=== PATIENT | male | born 1945 | race Caucasian/White ===

== ENCOUNTER 2024-02-02 23:28 | Inpatient (IN) | payer MEDICARE, BC ==
[~2024-02-02] VITALS: Ht 172.7 cm; Wt 75.3 kg
[2024-02-03] MEDS ORDERED: SIMV-46 PO (01:41)
[2024-02-03] MEDS ORDERED: TRAZ-182 (01:41)
[2024-02-03] MEDS ORDERED: ARIP2TAB3 (01:41)
[2024-02-03] MEDS ORDERED: SERT100T (01:41)
[2024-02-03] MEDS ORDERED: VALS80TA31 PO (01:41)
[2024-02-03] MEDS ORDERED: MAGNESIUM HYDROXIDE 30 ML LIQUID UDC PO PRN (02:45)
[2024-02-03] MEDS ORDERED: ZOLPIDEM 5 MG TABLET PO PRN (02:45)
[2024-02-03] MEDS ORDERED: LORAZEPAM 1 MG TABLET PO PRN (02:45)
[2024-02-03] MEDS ORDERED: ACETAMINOPHEN 325 MG TABLET PO PRN (02:45)
[2024-02-03] MEDS ORDERED: MAG HYDROX/AL HYDROX/SIMETH 30 ML LIQUID UDC PO PRN (02:45)
[2024-02-03] MEDS: BLOOD SUGAR DIAGNOSTIC 1 EACH STRIP VI ONE (03:31)
[2024-02-03 03:43] VITALS: BP 139/90; TEMP 98.1; O2SAT 96
[2024-02-03 08:00] VITALS: BP 121/87; TEMP 98.3; O2SAT 96
[2024-02-03 08:04] LABS: CALCIUM 9.2 mg/dL (8.5-10.1); CREATININE 0.9 mg/dL (0.6-1.3); POTASSIUM 3.5 mmol/L (3.5-5.1)
[2024-02-03] MEDS: SERTRALINE HCL 100 MG TABLET PO SCH (08:57)
[2024-02-03] MEDS: ARIPIPRAZOLE 2 MG TABLET PO SCH (08:57)
[2024-02-03 16:15] VITALS: BP 132/81; TEMP 98; O2SAT 96
[2024-02-03] MEDS: VALSARTAN 80 MG TABLET PO SCH (16:48)
[2024-02-03 20:00] VITALS: BP 138/81; TEMP 98.1; O2SAT 95
[2024-02-03] MEDS: SIMVASTATIN 20 MG TABLET PO SCH (20:38)
[2024-02-03] MEDS: MELATONIN 3 MG TABLET PO SCH (20:38)
[2024-02-03] MEDS: TRAZODONE 50 MG TABLET PO SCH (20:39)
[2024-02-04 07:54] VITALS: BP 126/74; TEMP 98.6; O2SAT 97
[2024-02-04 16:07] VITALS: BP 134/86; TEMP 97.6; O2SAT 97
[2024-02-04 20:00] VITALS: BP 136/82; TEMP 98; O2SAT 95
[2024-02-05 08:00] VITALS: BP 134/77; TEMP 97.9; O2SAT 97
[2024-02-05] MEDS: PSYLLIUM SEED PACKET PO SCH (09:00)
[2024-02-05] MEDS ORDERED: CALCIUM POLYCARBOPHIL 625 MG TABLET PO SCH (09:00)
[2024-02-05 16:17] VITALS: BP 120/81; TEMP 98.2; O2SAT 98
[2024-02-05 20:00] VITALS: BP 144/75; TEMP 98.1; O2SAT 93
[2024-02-06 08:27] VITALS: BP 98/50; TEMP 98.1; O2SAT 98
[2024-02-06] MEDS: ARIPIPRAZOLE 2 MG TABLET PO ONE (10:22)
[2024-02-06 16:10] VITALS: BP 102/60; TEMP 98.1; O2SAT 98
[2024-02-06 20:00] VITALS: BP 123/85; TEMP 98; O2SAT 97
[2024-02-07 08:41] VITALS: BP 116/74; TEMP 97.9; O2SAT 100
[2024-02-07] MEDS: ARIPIPRAZOLE 5 MG TABLET PO SCH (08:52)
[2024-02-07] MEDS ORDERED: ARIPIPRAZOLE 2 MG TABLET PO SCH (09:00)
[2024-02-07 16:28] VITALS: BP 121/73; TEMP 98; O2SAT 99
[2024-02-07 20:09] VITALS: BP 118/70; TEMP 98.1; O2SAT 98
[2024-02-07] MEDS: VALSARTAN 80 MG TABLET PO SCH (20:43)
[2024-02-08 07:56] VITALS: BP 113/71; TEMP 98.3; O2SAT 98
[2024-02-08 16:09] VITALS: BP 111/76; TEMP 98.1; O2SAT 98
[2024-02-08 20:00] VITALS: BP 130/77; TEMP 98.1; O2SAT 95
[2024-02-09 07:30] VITALS: BP 107/67; TEMP 98; O2SAT 98
[2024-02-09 15:24] VITALS: BP 113/71; TEMP 98.2; O2SAT 94
[2024-02-09 20:00] VITALS: BP 129/77; TEMP 98.9; O2SAT 95
[2024-02-10 07:59] VITALS: BP 132/89; TEMP 98; O2SAT 100
[2024-02-10 08:37] VITALS: BP 133/89
== END 2024-02-10 12:34 | disposition home or self-care (01) | DRG 885 ==
LOC: ER 23:38 → GPS 02-03 01:00
PROVIDERS: ADMIT Psychiatry & Neurology Psychiatry; ATTEND Nurse Practitioner Acute Care
DX: F33.2 Major depressive disorder, recurrent severe without psychotic features (principal); R45.851 Suicidal ideations; E78.5 Hyperlipidemia, unspecified; F41.9 Anxiety disorder, unspecified; I10 Essential (primary) hypertension; M19.90 Unspecified osteoarthritis, unspecified site; E66.9 Obesity, unspecified; Z68.25 Body mass index [BMI] 25.0-25.9, adult
CPT/HCPCS: 36415